=== PATIENT | male | born 1950 | race Caucasian/White ===

== ENCOUNTER 2021-05-10 09:59 | Outpatient (CLI) | payer MEDICARE, BC | END 2021-05-10 10:00 | disposition home or self-care (01) | LOC: NAV RAD 09:59 | PROVIDERS: ATTEND Family Medicine | DX: M54.5 Low back pain (principal); M47.816 Spondylosis without myelopathy or radiculopathy, lumbar region | CPT/HCPCS: 72100; 72170 ==

== ENCOUNTER 2022-09-07 11:53 | Emergency (ER) | payer MEDICARE, BC | END 2022-09-07 13:45 | disposition home or self-care (01) | LOC: NAV ERS 11:53 | DX: M19.042 Primary osteoarthritis, left hand (principal); E78.00 Pure hypercholesterolemia, unspecified; I10 Essential (primary) hypertension; Z79.899 Other long term (current) drug therapy ==